=== PATIENT | male | born 1980 | race Caucasian/White ===

== ENCOUNTER 2017-05-23 19:18 | Emergency (ER) | payer OTHER ==
[~2017-05-23] VITALS: Ht 177.8 cm; Wt 72.6 kg
--- NOTE | 2017-05-23 19:23 | NUR ---
PT BIBRA TO ER BED 10. PT IS IN CUSTODY STATED C/O PRESSURE LIKE CHEST PAIN THAT STARTED 20 MINS WHILE WATCHING TV. 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 NO RELIEFE. GOWNED AND PLACED ON MONITOR. STABLE VITALS. AWAITING MD BLANKENSHIP.
[2017-05-23] MEDS ORDERED: ASPIRIN 81 MG TAB.CHEW PO ONE (19:30)
[2017-05-23] MEDS ORDERED: NITROGLYCERIN 0.4 MG/TAB BOTTLE SL ONE (19:30)
--- NOTE | 2017-05-23 19:30 | NUR ---
IV LINE STARTED. BLOOD DRAWN AND SENT TO LAB.
[2017-05-23 19:36] LABS: BASOPHILS # (AUTO) 0.3 /CMM (0.0-0.2); BASOPHILS % (AUTO) 3.3 % (0.0-2.0); EOSINOPHILS # (AUTO) 0.1 /CMM (0.0-0.7); EOSINOPHILS % (AUTO) 1.3 % (0.0-6.0); HEMATOCRIT 51 % (39-51); HEMOGLOBIN 16.8 g/dL (13.5-17.5); LYMPHOCYTES # (AUTO) 1.7 /CMM (0.8-4.8); LYMPHOCYTES % (AUTO) 21.9 % (20.0-44.0); MEAN CORPUSCULAR HEMOGLOBIN 33 PG (26.0-33.0); MEAN CORPUSCULAR HGB CONC 33 g/dl (31.0-36.0); MEAN CORPUSCULAR VOLUME 100 fL (80-96); MONOCYTES # (AUTO) 0.6 /CMM (0.1-1.30); MONOCYTES % (AUTO) 7.2 % (2.0-12.0); NEUTROPHILS % (AUTO) 66.3 % (43.0-81.0); PLATELET COUNT (AUTO) 212 /CMM (150-450); RDW COEFFICIENT OF VARIATION 13.9 (11.5-15.0); RED BLOOD CELL COUNT(AUTO) 5.06 MIL/uL (4.5-6.0); WHITE BLOOD COUNT (AUTO) 7.7 K/uL (4.3-11.0)
[2017-05-23] MEDS ORDERED: NITROGLYCERIN 0.4 MG/TAB BOTTLE ONE (19:36)
[2017-05-23] MEDS ORDERED: ASPIRIN 81 MG TAB.CHEW ONE (19:37)
--- NOTE | 2017-05-23 19:44 | NUR ---
DR JOEL AT BEDSIDE FOR EVAL.
[2017-05-23 19:46] LABS: CALCIUM, SERUM 9.1 mg/dL (8.5-10.1); CARBON DIOXIDE 29 mmol/L (21-32); CHLORIDE 106 mmol/L (98-107); CREATININE 1.2 mg/dL (0.6-1.3); GLUCOSE 112 mg/dL (74-106); SODIUM SERUM 141 mmol/L (136-145); UREA NITROGEN, BLOOD 13 mg/dL (7-18)
--- NOTE | 2017-05-23 19:49 | NUR ---
STILL HAVING 7/10 PAIN. NITRO 0.4 SL GIVEN.
[2017-05-23 19:50] LABS: INR 1.04 (0.87-1.13); PROTHROMBIN TIME 10.8 SECS (9.5-12.7)
[2017-05-23 19:55] LABS: TROPONIN I < 0.017 ng/mL (0.00-0.056)
[2017-05-23] MEDS ORDERED: MORPHINE SULFATE INJ 2 MG/ML DISP.SYRIN IV ONE (20:00)
[2017-05-23] MEDS ORDERED: ONDANSETRON HCL/PF 4 MG/2 ML VIAL IV ONE (20:00)
[2017-05-23] MEDS ORDERED: MORPHINE SULFATE INJ 4 MG/ML DISP.SYRIN ONE (20:20)
[2017-05-23] MEDS ORDERED: ONDANSETRON HCL/PF 4 MG/2 ML VIAL ONE (20:20)
[2017-05-23 20:29] LABS: ALBUMIN 4.2 g/dL (3.4-5.0); BILIRUBIN,DIRECT 0.1 mg/dL (0.0-0.2); BILIRUBIN,TOTAL 0.4 mg/dL (0.2-1.0); TOTAL PROTEIN, SERUM 7.1 g/dL (6.4-8.2)
--- NOTE | 2017-05-23 23:31 | NUR ---
REPORT TO CHARGE NURSE SAUL FOR GUSTAVO.
--- NOTE | 2017-05-24 | NUR ---
pt ok to discharge per dr adkins. IV removed. Catheter intact and site benign. Pressure and 4x4 applied to site. No bleeding noted.Patient discharged in custody of [employer] in stable condition. Written and verbal after care instructions given. Patient verbalizes understanding of instruction.Patient is awake and alert to self, day, and place. pt ambulatory with a steady gait
[2017-05-24 01:12] VITALS: BP 132/88
== END 2017-05-24 ==
LOC: ER 19:20
DX: R07.89 Other chest pain (principal); F17.200 Nicotine dependence, unspecified, uncomplicated
CPT/HCPCS: 36415; 71010-TC; 80048-TC; 80076-TC; 83690-TC; 84484-TC; 85025-TC; 85730-TC; A4606; J2270; J2405; Z7610